=== PATIENT | male | born 1990 | race Caucasian/White ===

== ENCOUNTER 2018-09-23 01:03 | Emergency (ER) | payer SELFPAY ==
[2018-09-23 02:17] LABS: URINE SOURCE CLEAN C
--- NOTE | 2018-09-23 02:21 | ED Physician Chart ---
ED Chief Complaint/HPI - Patient Information Date Seen:: 09/23/18 Time Seen:: 02:15 Chief Complaint:: testicular swelling History of Present Illness:: 28 yr old male with testicular swelling and greenish d/c after new encounter halloween night thinks it is std Allergies:: Allergies Allergy/AdvReac Type Severity Reaction Status Date / Time No Known Allergies Allergy Verified 09/23/18 01:10 Vitals:: Vital Signs - 8 hr 09/23/18 09/23/18 01:12 01:23 Temp 99.8 F 99.8 F HR 106 106 RR 18 18 BP 140/88 140/88 O2 Sat % 100 100 ED Review of Systems - Review of Systems General/Constitutional: No fever, No chills Skin: No skin lesions Head: No headache Eyes: No loss of vision ENT: No earache Neck: No neck pain Cardio Vascular: No chest pain Pulmonary: No SOB GI: No nausea, No diarrhea G/U: Dysuria Musculoskeletal: No bone or joint pain Endocrine: No polyuria Psychiatric: No prior psych history Hematopoietic: No bruising Allergic/Immuno: No urticaria Neurological: No syncope ED Past Medical History - Past Medical History Past Medical History: No significant medical hx Family Medical History - Family Member Mother History Unknown: Yes ED Physical Exam - Physical Examination General/Constitutional: Well-developed, well-nourished Head: Atraumatic Eyes: Lids, conjuctiva normal ENMT: External ears, nose nl Neck: Nontender Respiratory: Nl effort/Exclusion Cardio Vascular: No murmur, gallop, rubs GI: No tenderness/rebounding/guarding Extremities: No tenderness or effusion Neuro/Psych: DTR's symmetric ED Assessment - Assessment General Assessment: testicular pain and std exposure ED Septic Shock - . Is Septic Shock (SBP<90, OR Lactate>4 mmol\L) present?: No - <6hrs of presentation: Vital Signs: Vital Signs - 8 hr 09/23/18 09/23/18 01:12 01:23 Temp 99.8 F 99.8 F HR 106 106 RR 18 18 BP 140/88 140/88 O2 Sat % 100 100 ED Reassessment (Disposition) - Reassessment Reassessment Condition:: Improved - Diagnosis Diagnosis:: testicular swelling pain and discharge r/o std - Aftercare/Follow up Instructions Aftercare/Follow-Up Instructions:: Counseled pt regarding lab results/diagnosis & need follow up - Patient Disposition Discharge/Transfer:: Home Condition at Disposition:: Stable
[2018-09-23 02:24] LABS: URINE BILIRUBIN NEGATIVE (NEGATIVE); URINE BLOOD TRACE (NEGATIVE); URINE GLUCOSE (UA) NEGATIVE (NEGATIVE); URINE KETONE NEGATIVE (NEGATIVE); URINE LEUKOCYTE ESTERASE TRACE (NEGATIVE); URINE MICROSCOPIC INDICATED? YES; URINE NITRATE NEGATIVE (NEGATIVE); URINE PH 5.5 (4.6 - 8.0); URINE PROTEIN NEGATIVE (NEGATIVE); URINE UROBILINOGEN 0.2 E.U./dL (0.2 - 1.0)
[2018-09-23 02:27] LABS: % BASOPHILS 0.5 % (0.0-2.0); % EOSINOPHILS 4.8 % (0.0-5.0); % LYMPHOCYTES 27.9 % (20.0-50.0); % MONOCYTES 11.4 % (2.0-10.0); % NEUTROPHILS 55.4 % (40.0-80.0); BASOPHILE ABSOLUTE 0.1 Th/cumm (0-0.2); EOSINOPHILE ABSOLUTE 0.6 Th/cmm (0.1-0.4); HEMATOCRIT 43.1 % (41.0-60); HEMOGLOBIN 14.6 gm/dL (12-16); LYMPHOCYTE ABSOLUTE 3.5 Th/cmm (1.5-3.0); MEAN CELL VOLUME 88.7 fl (80-99); MEAN CORPUSCULAR HGB CONC 33.8 pg (28.0-36.0); MEAN PLATELET VOLUME 7.5 fl; MONOCYTE ABSOLUTE 1.4 Th/cmm (0.3-1.0); PLATELET COUNT 295 Th/cmm (150-400); RED BLOOD COUNT 4.86 Mil/cmm (4.30-5.70); RED CELL DISTRIBUTION WIDTH 12.2 % (11.5-20.0); WHITE BLOOD COUNT 12.6 Th/cmm (4.8-10.8)
[2018-09-23 02:28] LABS: CANNABINOID THC POSITIVE (NEGATIVE)
[2018-09-23 02:29] LABS: AMPHETAMINE URINE POSITIVE (NEGATIVE); BARBITURATES URINE NEGATIVE (NEGATIVE); BENZODIAZEPINES QUAL URINE NEGATIVE (NEGATIVE); COCAINE METABOLITE QUAL URINE NEGATIVE (NEGATIVE); METHADONE URINE NEGATIVE (NEGATIVE); METHAMPHETAMINES QUAL URINE POSITIVE (NEGATIVE); OPIATES (MORPHINE) QUAL. URINE POSITIVE (NEGATIVE); PHENCYCLIDINE (PCP) URINE NEGATIVE (NEGATIVE); TRICYCLICS (TCA) QUAL. URINE NEGATIVE (NEGATIVE)
[2018-09-23 02:39] LABS: ALB/GLOB RATIO 1.4 (1.0-1.8); ALBUMIN 4.2 gm/dL (4.2-5.5); ALKALINE PHOSPHATASE 80 U/L (34-104); ANION GAP 12.1 (7.0-16.0); BILIRUBIN,TOTAL 0.3 mg/dL (0.3-1.0); BUN - UREA NITROGEN 10 mg/dL (7-25); CALCIUM SERUM 9.7 mg/dL (8.6-10.3); CARBON DIOXIDE 28.9 mEq/L (21.0-31.0); CHLORIDE 99 mEq/L (98-107); CREATININE - SERUM 0.8 mg/dL (0.7-1.3); GFR AFRICAN-AMERICAN > 60.0 ml/min (>90); GFR NON AFRICAN-AMERICAN > 60.0 ml/min; GLUCOSE 110 mg/dL (70-105); SGOT 39 U/L (13-39); SGPT/ALT 59 U/L (7-52); TOTAL PROTEIN,SERUM 7.2 gm/dL (6.0-8.3)
[2018-09-23 02:40] LABS: URINE CLARITY HAZY (CLEAR); URINE COLOR YELLOW
[2018-09-23 02:43] LABS: URINE BACTERIA MODERATE /hpf (NONE SEEN); URINE EPITHELIAL CELLS NONE SEEN /lpf (FEW)
[2018-09-23 02:48] LABS: SODIUM SERUM 137 mEq/L (136-145)
[2018-09-23] MEDS ORDERED: Potassium Chloride 20 mEq ER Tab PO ONE ×2 (02:55→02:58)
--- NOTE | 2018-09-23 08:39 | Diagnostic Imaging Report ---
Testicular/scrotal ultrasound HISTORY: Pain, penile swelling The right testis measures 3.1 x 1.9 x 4.2 cm. No focal parenchymal lesions. Normal testicular vascular flow. The right epididymis appears normal. The left testis measures 2.1 x 3.0 x 4.1 cm. No focal parenchymal lesions. Normal testicular vascular flow. A subcentimeter sonolucent focus consistent with a cyst seen within the left epididymis. Evaluation of the penis is very limited due to soft tissue swelling. IMPRESSION: 1. Findings consistent with a left epididymal cyst 2. No intratesticular abnormalities
== END 2018-09-23 03:30 | disposition home or self-care (01) ==
LOC: ER 01:03
DX: N50.89 Other specified disorders of the male genital organs (principal); N50.819 Testicular pain, unspecified
CPT/HCPCS: 99285; 87491; 96372; 76870; 36415; 80307; 85025; 87086; 80053; 81001; J0696; J2001